=== PATIENT | female | born 1990 | race African-American/Black ===

== ENCOUNTER 2020-09-21 19:51 | Emergency (ER) | payer MEDICAID ==
[~2020-09-21] VITALS: Ht 172.7 cm; Wt 76.2 kg
[2020-09-21 20:06] VITALS: BP 112/68
--- NOTE | 2020-09-21 20:06 | NUR ---
ED Nurse Note: Pt walked into ED from home for med refill: Propranolol 20mg tablet 1 tablet PO BID, Methimazole 5mg tablet 1 tablet PO daily
--- NOTE | 2020-09-21 20:27 | Emergency Room Report ---
History of Present Illness General Chief Complaint: Medication Refill Source: Patient Present Illness HPI Patient has been off of her medications for a week to week and a half. She states her heart rate has been rapid. She also has some nausea but no diarrhea. The patient denies fever or chills. She denies chest pain or body pain. Has hypothyroidism and has a goiter. She lost contact with her physicians in [place] and therefore was unable to fill her medications. She moves between [place] and [place] for social reasons. No sore throat, chest pain, vomiting, dysuria, abdominal pain, shortness of breath, joint pain, rashes, depression, anxiety, visual changes, dizziness, headache. 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 Sp02 EP Interpretation: reviewed, normal General Appearance: well appearing, no apparent distress, GCS 15 Head: normocephalic Eyes: bilateral eye normal inspection, bilateral eye PERRL, bilateral eye EOMI, bilateral eye other - No exophthalmos ENT: moist mucus membranes Neck: full range of motion, supple, thyromegaly - Large symmetrical goiter which is nontender Respiratory: normal inspection Cardiovascular #1: tachycardia Cardiovascular #2: 2+ radial (R) Gastrointestinal: normal inspection Musculoskeletal: gait/station normal Neurologic: alert, grossly normal Psychiatric: mood/affect normal Skin: other - Acneform lesions neck Medical Decision Making Diagnostic Impression: Primary Impression: Hyperthyroidism ER Course Patient with a history of hyperthyroidism who is noncompliant with medications for a week and a half. She presents with tachycardia. There is no evidence of thyroid storm at this time. Patient needs administration of propranolol and refill of other medications. Discussed treatment plan with patient. No medical emergency at this time. Patient stable for outpatient observation and treatment. Last Vital Signs Date Time Temp Pulse Resp B/P (MAP) Pulse Ox O2 Delivery O2 Flow Rate FiO2 09/21/20 20:37 98.0 76 18 112/70 100 Room Air Status: improved Disposition: HOME, SELF-CARE Condition: Improved Scripts Methimazole (Methimazole) 5 Mg Tablet 5 MG GT DAILY, #30 TAB Prov: Eligio Vásquez MD 09/21/20 Propranolol Hcl* (INDERAL*) 20 Mg Tablet 20 MG ORAL BID, #60 TAB 0 Refills Prov: Eligio Vásquez MD 09/21/20 Eligio Vásquez MD Sep 21, 2020 20:27
[2020-09-21] MEDS ORDERED: Propranolol 10mg tab ORAL ONE (20:30)
[2020-09-21] MEDS ORDERED: TAPAZOLE5 MG GT (20:31)
[2020-09-21] MEDS ORDERED: PROPRANOLOL HCL20 MG ORAL (20:31)
[2020-09-21 20:37] VITALS: BP 112/70
--- NOTE | 2020-09-21 20:37 | NUR ---
ER DISCHARGE NOTE: Patient is cleared to be discharged per ERMD, pt is aox4, on room air, with stable vital signs. pt was given dc and paper prescription refill, pt was able to verbalize understanding, pt id band removed. pt is able to ambulate with steady gait. pt took all belongings.
== END 2020-09-21 20:37 | disposition home or self-care (01) ==
LOC: EMR 20:10
DX: E05.90 Thyrotoxicosis, unspecified without thyrotoxic crisis or storm (principal); F17.200 Nicotine dependence, unspecified, uncomplicated; Z86.16 Personal history of COVID-19
CPT/HCPCS: 99282